=== PATIENT | male | born 1975 ===

== ENCOUNTER 2016-08-17 15:10 | Observation (INO) | payer MEDICAID ==
[2016-08-17 15:16] VITALS: BMI 24.3
[2016-08-17 15:56] LABS: BASO # 0.1 K/uL (0.0-0.2); BASO % 1.2 % (0.0-2.0); EOS # 0.2 K/uL (0.0-0.7); EOS % 3.2 % (0.0-4.0); HEMATOCRIT 40.9 % (35.0-51.0); LYMPH # 2.5 K/uL (1.0-4.3); LYMPH % 35.9 % (20.0-40.0); MEAN CELL VOLUME 89.9 fL (80.0-94.0); MEAN CORPUSCULAR HEMOGLOBIN 29.5 pg (27.0-31.0); MEAN CORPUSCULAR HGB CONC 32.8 g/dL (33.0-37.0); MEAN PLATELET VOLUME 7.9 fL (7.2-11.7); MONO # 0.7 K/uL (0.0-0.8); MONO % 9.5 % (0.0-10.0); RED CELL DISTRIBUTION WIDTH 14.3 % (11.5-14.5); WHITE BLOOD COUNT 6.9 K/uL (4.8-10.8)
[2016-08-17 15:58] LABS: RBC URINE 1 /hpf (0-3); URINE BILIRUBIN NEGATIVE (NEGATIVE); URINE BLOOD NEGATIVE (NEGATIVE); URINE COLOR Yellow (YELLOW); URINE GLUCOSE (UA) NORMAL (Normal); URINE KETONE NEGATIVE (NEGATIVE); URINE LEUKOCYTE ESTERASE NEG Leu/uL (Negative); URINE PROTEIN NEGATIVE (NEGATIVE); URINE UROBILINOGEN NORMAL mg/dL (0.2-1.0)
[2016-08-17 16:18] LABS: CHLORIDE 109 mmol/L (98-107)
[2016-08-17 16:19] LABS: POTASSIUM 3.7 mmol/L (3.6-5.2); SODIUM 141 mmol/L (132-148)
[2016-08-17 16:21] LABS: ALB/GLOB RATIO 1.2 (1.0-2.1); ALKALINE PHOSPHATASE 49 U/L (38-126); ALT/SGPT 29 U/L (21-72); AST/SGOT 31 U/L (17-59); BILIRUBIN,TOTAL 0.5 mg/dL (0.2-1.3); BLOOD UREA NITROGEN 12 mg/dL (9-20); CARBON DIOXIDE 24 mmol/L (22-30); GFR AFRICAN-AMERICAN > 60; GLUCOSE,RANDOM 109 mg/dL (75-110); TOTAL PROTEIN 7.2 g/dL (6.3-8.3)
--- NOTE | 2016-08-17 17:01 | US ---
HISTORY: pain to left spermatic cord TECHNIQUE: Realtime sonography through the scrotum with color and doppler flow. COMPARISON: None Available. FINDINGS: RIGHT TESTICLE: Measures 4.4 x 2.4 x 3.1 cm. Homogeneous echotexture. Blood flow is demonstrated. RIGHT EPIDIDYMIS: Measures approximately 1.4 x 0.8 x 0.9 cm. LEFT TESTICLE: Measures 4.2 x 2.3 x 2.9 cm. Homogeneous echotexture. Blood flow is demonstrated. LEFT EPIDIDYMIS: Measures approximately 1.3 x 0.9 x 1.1 cm HYDROCELE: Bilateral hydroceles. VARICOCELE: None. OTHER FINDINGS: Limited provided images in the region of interest, left groin appears mildly asymmetric and greater in size than the right ; this structure imaged is unclear and favored muscular. Correlate clinically. IMPRESSION: Bilateral hydroceles. Limited provided images in the region of interest, left groin appears mildly asymmetric and greater in size than the right ; this structure imaged is unclear and favored muscular. Correlate clinically.
[2016-08-17] MEDS ORDERED: Azithromycin 500 MG in Sodium Chloride 0.9% 250 ML IVPB STA (17:29)
[2016-08-17] MEDS ORDERED: cefTRIAXone IV 1 gm in Dextros 50 ML IVPB ONE (17:29)
--- NOTE | 2016-08-17 17:29 | C.PDOC ---
History Of Present Illness 41 y/o male presents to ED with complaints of burning sensation to left groin with radiation along path of spermatic cord for 3 weeks. Patient states it is burning in nature and is constant but intermittently gets worse. Patient reports pain to be a 8/10 and is currently not sexually active. Patient denies dysuria, hematuria, penile discharge, fever, chills, abdominal pain or any other complaints at this time. Time Seen by Provider: 08/17/16 15:22 Chief Complaint (Nursing): Male Genitourinary History Per: Patient History/Exam Limitations: no limitations Onset/Duration Of Symptoms: Days Quality Of Discomfort: Burning Past Medical History Reviewed: Historical Data, Nursing Documentation, Vital Signs Vital Signs: Last Vital Signs Temp 98.5 F 08/17/16 15:16 Pulse 77 08/17/16 15:16 Resp 18 08/17/16 15:16 BP 117/78 08/17/16 15:16 Pulse Ox 99 08/17/16 18:27 - [facility] Procedures PSYCHIA INTERV/EVAL NEC (11/03/14) Family History: States: No Known Family Hx - Social History Hx Alcohol Use: Yes Hx Substance Use: Yes - Immunization History Hx Tetanus Toxoid Vaccination: No Hx Influenza Vaccination: No Hx Pneumococcal Vaccination: No Review Of Systems Except As Marked, All Systems Reviewed And Found Negative. Constitutional: Negative for: Fever, Chills Gastrointestinal: Negative for: Abdominal Pain Genitourinary: Negative for: Dysuria, Hematuria, Penile Discharge Musculoskeletal: Negative for: Back Pain Physical Exam - Physical Exam Appears: Non-toxic, No Acute Distress Skin: Normal Color, Warm Head: Atraumatic, Normacephalic Chest: Symmetrical Cardiovascular: Rhythm Regular, No Murmur Respiratory: Normal Breath Sounds, No Rales, No Rhonchi, No Wheezing Gastrointestinal/Abdominal: Soft, No Tenderness, No Guarding, No Rebound Male Genital: No Testicular Tenderness, Inguinal Tenderness (Bilateral R>L), Other (Mild inguinal lymphadenopathy R>L) Extremity: Normal ROM, Capillary Refill (<2 seconds) Neurological/Psych: Oriented x3 ED Course And Treatment - Laboratory Results Result Diagrams: 08/17/16 15:51 08/17/16 15:51 O2 Sat by Pulse Oximetry: 99 (RA) Pulse Ox Interpretation: Normal Medical Decision Making Medical Decision Making: Patient had blood work and urine test WNL Patient treated for STDS US, discussed with Dr. Forbes advised a CT abd/pevis to determine pathology IMPRESSION: Bilateral hydroceles. Limited provided images in the region of interest, left groin appears mildly asymmetric and greater in size than the right ; this structure imaged is unclear and favored muscular. Correlate clinically. Spoke with Dr. Negrete. CT may clarify if there is any significant pathology. CT, IV po contrast, will be endorsed to Dr. Borges for final review of CT and disposition ED OBSERVATION Date of observation admission: 08/17/16 Time of observation admission: 16:30 - Observation admission statement Patient is being placed in observation because:: Pending Sono, and results. - Goals of Observation Goals of observation are:: Evaluate groin pathology Disposition Counseled Patient/Family Regarding: Studies Performed - Disposition Disposition: HOSPITALIZED Disposition Time: 16:30 Condition: STABLE - Clinical Impression Clinical Impression: Lt groin pain - Scribe Statement The provider has reviewed the documentation as recorded by the Scribe Wayne Gaviria All medical record entries made by the Scribe were at my direction and personally dictated by me. I have reviewed the chart and agree that the record accurately reflects my personal performance of the history, physical exam, medical decision making, and the department course for this patient. I have also personally directed, reviewed, and agree with the discharge instructions and disposition. Physician Patient Turnover Patient Signed Over To: Brodie Borges Handoff Comments: Patient with left groin pain, questionable findings on Sono, pending CT IV/PO contrast.
[2016-08-17] MEDS ORDERED: cefTRIAXone (Rocephin) 250 mg Inj IM STA (17:32)
[2016-08-17] MEDS ORDERED: Sodium Chloride 0.9% 1,000 ML IV ONE (17:52)
[2016-08-17] MEDS ORDERED: Iohexol 240 (50 ml) PO STA (17:52)
[2016-08-17] MEDS ORDERED: Iohexol 240 (50 ml) ONE (18:25)
[2016-08-17] MEDS ORDERED: Iohexol 300 100 ML IJ ONE (18:41)
[2016-08-17 18:51] VITALS: PULSE 60
--- NOTE | 2016-08-17 20:00 | CT ---
EXAM: CT Abdomen and Pelvis With Intravenous Contrast CLINICAL HISTORY: 41 years old, male; Pain; Abdominal pain; Localized; Other: Left groin pain; Additional info: Abd pain TECHNIQUE: Axial computed tomography images of the abdomen and pelvis with intravenous contrast. This CT exam was performed using one or more of the following dose reduction techniques: automated exposure control, adjustment of the mA and/or kV according to patient size, and/or use of iterative reconstruction technique. Coronal and sagittal reformatted images were created and reviewed. CONTRAST: 100 mL of omnipaque 300 administered intravenously. EXAM DATE/TIME: 08/17/2016 5:53 PM COMPARISON: There are no prior studies for comparison. FINDINGS: Lower thorax: Heart size is normal. Lung bases are clear. There is minimal scarring at the lung bases ABDOMEN: Liver: There is fatty infiltration of the liver. Gallbladder and bile ducts: unremarkable Pancreas: unremarkable Spleen: unremarkable Adrenals: unremarkable Kidneys and ureters: unremarkable Stomach and bowel: Stomach is partially distended. Rotation is normal. Duodenum and proximal jejunum are mildly distended with fluid. Distention decreases distally. There is wall and fold prominence in duodenum and proximal jejunum. There is mild ileal wall thickening. There is no obstruction. Appendix is unremarkable. There is moderate stool in the colon. Appendix: See above. PELVIS: Bladder: unremarkable Reproductive: Seminal vesicles and prostate are unremarkable. ABDOMEN and PELVIS: Intraperitoneal space: There is no free fluid.There is no free air. Bones/joints: There are no acute osseous abnormalities Soft tissues: There is a fat containing left inguinal hernia Vasculature: Vascular structures are unremarkable. Lymph nodes: There is no pathologic adenopathy. IMPRESSION: Fatty liver, no acute solid visceral abnormality; enteritis, no obstruction Additional findings as described above.
[2016-08-17 20:37] VITALS: BP 121/93; RESP 20; TEMP 97.9; O2SAT 99
== END 2016-08-17 20:19 | disposition home or self-care (01) ==
LOC: C.ER 15:10 → C.9OBSV 18:34
PROVIDERS: ADMIT Emergency Medicine; ATTEND Emergency Medicine
DX: N43.3 Hydrocele, unspecified (principal)
CPT/HCPCS: 74177; 76870; 80053; 81001; 85025; 87086; 96360; 96372; 99284; G0378; J0696; J7040; Q9966; Q9967